=== PATIENT | male | born 1990 | race Caucasian/White ===

== ENCOUNTER 2024-07-23 14:44 | Emergency (ER) | payer SELFPAY ==
[2024-07-23 14:55] VITALS: BP 133/69; PULSE 72; RESP 18; TEMP 99; BMI 29.8
[2024-07-23] MEDS ORDERED: DIPHTH,PERTUSS(ACELL),TET 0.5 ML DISP.SYRIN IM ONE (15:04)
[2024-07-23] MEDS ORDERED: ACETAMINOPHEN 500 MG TABLET (FP) ONE (15:04)
[2024-07-23] MEDS: DIPHTH,PERTUSS(ACELL),TET 0.5 ML DISP.SYRIN IM ONE (15:21)
[2024-07-23] MEDS: ACETAMINOPHEN 500 MG TABLET (FP) PO ONE (15:22)
[2024-07-23] MEDS ORDERED: IBUPROFEN 600 MG TABLET (FP) PO ONE (16:07)
[2024-07-23] MEDS ORDERED: CLINDAMYCIN HCL 150 MG CAPSULE (FP) ONE (16:07)
[2024-07-23] MEDS: CLINDAMYCIN HCL 300 MG CAPSULE PO ONE (16:11)
[2024-07-23] MEDS: IBUPROFEN 600 MG TABLET (FP) PO ONE (16:11)
== END 2024-07-23 16:26 | disposition home or self-care (01) ==
LOC: JERFT 14:44
PROC: 0XQMXZZ Repair Left Thumb, External Approach (ICD-10-PCS; principal; 2024-07-23)
PROC: 3E0234Z Introduction of Serum, Toxoid and Vaccine into Muscle, Percutaneous Approach (ICD-10-PCS; 2024-07-23)
DX: S61.012A Laceration without foreign body of left thumb without damage to nail, initial encounter (principal); W31.1XXA Contact with metalworking machines, initial encounter; Y99.0 Civilian activity done for income or pay; Z23 Encounter for immunization
CPT/HCPCS: 73140-TC-LT-FY; 90715; 99284-25